=== PATIENT | male | born 1945 | race Caucasian/White ===

== ENCOUNTER → 2020-02-08 | Outpatient (CLI) | payer MEDICARE, OTHER ==
[~2020-02-08] MED LIST: AEC81 PO; ATEN50TA PO; ATOR40TA71 PO; DIPH25CA53 PO; METF750T46 PO; MULT-660 PO; VALS160T29 PO; VICTOZA SQ
== END | disposition home or self-care (01) ==
LOC: RESP 10:36
PROVIDERS: ATTEND Internal Medicine Cardiovascular Disease
DX: J44.9 Chronic obstructive pulmonary disease, unspecified (principal)
CPT/HCPCS: 94060; 94727; 94729